=== PATIENT | male | born 1970 | race African-American/Black ===

== ENCOUNTER 2021-03-23 22:20 | Emergency (ER) | payer OTHER, BC ==
[2021-03-23] MEDS ORDERED: Acetaminophen/HYDROcodone 325-5 MG Tab PO ONE (23:12)
== END 2021-03-24 02:57 | disposition home or self-care (01) ==
LOC: EDBD 22:20 → VM.ED 22:20
DX: M54.50 Low back pain, unspecified (principal)
CPT/HCPCS: 70450; 71250; 72125; 74176; 99283; 99284; A9270